=== PATIENT | male | born 1975 | race American Indian/Alaskan Native ===

== ENCOUNTER 2020-03-09 11:17 | Emergency (ER) | payer SELFPAY ==
[2020-03-09 11:32] VITALS: BP 141/95
[2020-03-09] MEDS ORDERED: IBUPROFEN 600 MG TAB PO ONE (12:56)
--- NOTE | 2020-03-09 13:00 | Emergency Department Report ---
ED General Adult HPI - General Chief complaint: Chest Pain Stated complaint: CHEST PAIN/DOWN (R) SIDE Time Seen by Provider: 03/09/20 12:56 Source: patient Mode of arrival: Ambulatory Limitations: No Limitations - History of Present Illness Initial comments: 44-year-old -[place] male presents to the emergency room complaining of right side and rib pain for the last 2 to 3 days. Patient states that it is worse with deep breath and twisting makes it short of breath. Patient states that he fell out of a ceiling 2 weeks ago. He states that it gotten better but now is worse. Worse with deep breath. He currently has no past medical history takes no meds on a daily basis has no known drug allergies. Ibuprofen seems to help with his pain. Patient denies any fever chills no nausea no vomiting no diarrhea. Patient denies any possible COVID-19 contact. Patient denies any recent travels denies any cancers, patient denies any swelling to his lower extremities. He does not have a primary care provider. Onset/Timin -: days(s), week(s) (2 weeks for a fall) Severity scale (0 -10): 9 Quality: aching Consistency: intermittent Improves with: medication Worsens with: movement Associated Symptoms: shortness of breath Treatments Prior to Arrival: none - Related Data Previous Rx's Medication Instructions Recorded Last Taken Type Ibuprofen [Motrin 600 MG tab] 600 mg PO Q8H PRN #21 tablet 03/09/20 Unknown Rx Allergies Allergy/AdvReac Type Severity Reaction Status Date / Time No Known Allergies Allergy Unverified 03/09/20 11:28 ED Review of Systems ROS: Stated complaint: CHEST PAIN/DOWN (R) SIDE Other details as noted in HPI Comment: All other systems reviewed and negative ED Past Medical Hx - Past Medical History Previous Medical History?: No - Surgical History Past Surgical History?: No - Social History Smoking Status: Current Every Day Smoker Substance Use Type: None - Medications Home Medications: Home Medications Medication Instructions Recorded Confirmed Last Taken Type Ibuprofen [Motrin 600 MG tab] 600 mg PO Q8H PRN #21 tablet 03/09/20 Unknown Rx ED Physical Exam - General Limitations: No Limitations General appearance: alert, in no apparent distress - Head Head exam: Present: atraumatic, normocephalic - Eye Eye exam: Present: normal appearance - ENT ENT exam: Present: mucous membranes moist - Respiratory Respiratory exam: Present: normal lung sounds bilaterally. Absent: respiratory distress - Cardiovascular Cardiovascular Exam: Present: regular rate, normal rhythm. Absent: systolic murmur, diastolic murmur, rubs, gallop - GI/Abdominal GI/Abdominal exam: Present: soft, normal bowel sounds - Back Exam Back exam: Present: tenderness (Right posterior flank and right side ribs) - Neurological Exam Neurological exam: Present: alert, oriented X3, normal gait - Psychiatric Psychiatric exam: Present: normal affect, normal mood - Skin Skin exam: Present: warm, dry, intact, normal color. Absent: rash ED Course Vital Signs 03/09/20 03/09/20 11:29 13:13 Temperature 98.0 F Pulse Rate 104 H Respiratory 20 18 Rate Blood Pressure 141/95 O2 Sat by Pulse 96 Oximetry ED Medical Decision Making - Medical Decision Making 44-year-old -[place] male presents to the emergency room complaining of right side and rib pain for the last 2 to 3 days. Patient states that it is worse with deep breath and twisting makes it short of breath. Patient states that he fell out of a ceiling 2 weeks ago. He states that it gotten better but now is worse. Worse with deep breath. He currently has no past medical history takes no meds on a daily basis has no known drug allergies. Ibuprofen seems to help with his pain. He does not have a primary care provider. Rib series right side with chest x-ray. Ibuprofen given for pain management. Critical care attestation.: If time is entered above; I have spent that time in minutes in the direct care of this critically ill patient, excluding procedure time. ED Disposition Clinical Impression: Chest wall contusion Qualifiers: Encounter type: initial encounter Laterality: right Qualified Code(s): S20.211A - Contusion of right front wall of thorax, initial encounter Contusion of rib on right side Qualifiers: Encounter type: initial encounter Qualified Code(s): S20.211A - Contusion of right front wall of thorax, initial encounter Fall Qualifiers: Encounter type: initial encounter Qualified Code(s): W19.XXXA - Unspecified fall, initial encounter Right pulmonary contusion Qualifiers: Encounter type: initial encounter Qualified Code(s): S27.321A - Contusion of lung, unilateral, initial encounter Disposition: DC-01 TO HOME OR SELFCARE Is pt being admited?: No Does the pt Need Aspirin: No Condition: Stable Instructions: Costochondritis (ED), Pulmonary Contusion (ED) Additional Instructions: Please use the incentive spirometry at least 10 times a day for the next week. You can take ibuprofen as needed for pain management. Return back to the emergency room immediately if you start to have a fever worsening short of breath chest pain. Prescriptions: Ibuprofen [Motrin 600 MG tab] 600 mg PO Q8H PRN #21 tablet PRN Reason: Pain Referrals: BRIGHT SAMUELS MD [Primary Care Provider] - 3-5 Days JENNIFER ROJAS MD [Staff Physician] - 3-5 Days Forms: Work/School Release Form(ED)
--- NOTE | 2020-03-09 13:28 | XRay Report ---
RIGHT RIBS 3 VIEWS INDICATION / CLINICAL INFORMATION: Chest pain with rib pain to the rt side s/p fall. COMPARISON: None available. FINDINGS: There is a focal parenchymal opacity in the lateral right lower lung with associated small right pleural effusion. There is no appreciable rib fracture. This could represent a pulmonary contus ion without a displaced rib fracture. There is no pneumothorax. Recommend clinical evaluation to excl ude underlying pneumonia as the cause for the parenchymal opacity. Signer Name: Domingo Bautista MD Signed: 03/09/2020 1:24 PM Workstation Name: [id number]
== END 2020-03-09 14:35 | disposition home or self-care (01) ==
LOC: ED 11:17
DX: S20.211A Contusion of right front wall of thorax, initial encounter (principal); S27.321A Contusion of lung, unilateral, initial encounter; F17.200 Nicotine dependence, unspecified, uncomplicated; Z79.899 Other long term (current) drug therapy; W17.89XA Other fall from one level to another, initial encounter; Y93.89 Activity, other specified; Y92.89 Other specified places as the place of occurrence of the external cause; Y99.8 Other external cause status